=== PATIENT | female | born 1975 | race Hispanic/Latino ===

== ENCOUNTER 2024-12-05 15:25 | Inpatient (IN) | payer SELFPAY ==
[~2024-12-05] VITALS: Ht 162.6 cm; Wt 75.7 kg
[2024-12-05 15:48] VITALS: TEMP 98.4
[2024-12-05] MEDS: SODIUM CHLORIDE 0.9% 1000ML 1,000 ML IV STA (16:13)
[2024-12-05 16:17] LABS: BASOPHILS # (AUTO) 0.1 (0.0-0.1); BASOPHILS % 0.4 % (0.0-1.0); EOSINOPHILS # (AUTO) 0.5 (0.0-0.4); EOSINOPHILS % 3.3 % (0.0-6.0); HEMATOCRIT 41.4 % (34.2-44.1); LYMPHOCYTES # (AUTO) 3.8 (1.0-3.2); LYMPHOCYTES % 27.6 % (18.0-39.1); MEAN CORPUSCULAR HEMOGLOBIN 29.9 pg (28-32); MEAN CORPUSCULAR HGB CONC 33.8 g/dL (31-35); MEAN CORPUSCULAR VOLUME 88.5 fL (81-99); MONOCYTES # (AUTO) 1.2 (0.2-0.8); MONOCYTES % 8.7 % (4.4-11.3); NEUTROPHILS # (AUTO) 8.3 (2.1-6.9); NEUTROPHILS % 59.8 % (38.7-80.0); PLATELET COUNT 272 x10e3/uL (140-360); RED BLOOD COUNT 4.68 x10e6/uL (3.6-5.1); RED CELL DISTRIBUTION WIDTH 13.2 % (11.7-14.4); WHITE BLOOD COUNT 13.83 x10e3/uL (4.8-10.8)
[2024-12-05 16:30] LABS: INR 0.89; PROTHROMBIN TIME 12.6 seconds (11.9-14.5)
[2024-12-05 16:31] LABS: PARTIAL THROMBOPLASTIN TIME 28.7 seconds (23.8-35.5)
[2024-12-05] MEDS: DICYCLOMINE HCL 20 MG/2 ML VIAL IM ONE (16:31)
[2024-12-05] MEDS: ONDANSETRON HCL INJ 2MG/ML 2ML 2 MG/ML VIAL IV STA (16:33)
[2024-12-05 16:40] LABS: ALBUMIN 3.9 g/dL (3.5-5.0); ALBUMIN/GLOBULIN RATIO 1.3 (0.8-2.0); ANION GAP 16.6 mmol/L (8-16); BILIRUBIN,TOTAL 0.3 mg/dL (0.2-1.2); CALCIUM 9.8 mg/dL (8.4-10.2); CREATININE, SERUM 0.74 mg/dL (0.57-1.11); POTASSIUM 3.6 mmol/L (3.5-5.1); TOTAL PROTEIN 6.8 g/dL (6.5-8.1)
[2024-12-05] MEDS ORDERED: SODIUM CHLORIDE 0.9% 100 ML ONE (16:49)
[2024-12-05] MEDS ORDERED: IOPAMIDOL 370 MG/ML 100 ML INFUS..BTL INJ ONE (16:49)
[2024-12-05 18:08] VITALS: PULSE 61; RESP 18
[2024-12-05] MEDS ORDERED: AMOX TR-K CLV1 EAC2 PO (18:37)
[2024-12-05] MEDS ORDERED: DICYCLOMINE HCL10 MG PO (18:38)
[2024-12-05 18:40] LABS: BASOPHILS # (AUTO) 0.1 (0.0-0.1); BASOPHILS % 0.5 % (0.0-1.0); EOSINOPHILS # (AUTO) 0.5 (0.0-0.4); EOSINOPHILS % 3.2 % (0.0-6.0); HEMATOCRIT 38.9 % (34.2-44.1); HEMOGLOBIN 12.8 g/dL (12.0-16.0); LYMPHOCYTES # (AUTO) 3.6 (1.0-3.2); LYMPHOCYTES % 24.9 % (18.0-39.1); MEAN CORPUSCULAR HEMOGLOBIN 29.7 pg (28-32); MEAN CORPUSCULAR HGB CONC 32.9 g/dL (31-35); MEAN CORPUSCULAR VOLUME 90.3 fL (81-99); MONOCYTES % 6.9 % (4.4-11.3); NEUTROPHILS # (AUTO) 9.3 (2.1-6.9); NEUTROPHILS % 64.2 % (38.7-80.0); PLATELET COUNT 246 x10e3/uL (140-360); RED BLOOD COUNT 4.31 x10e6/uL (3.6-5.1); RED CELL DISTRIBUTION WIDTH 13.2 % (11.7-14.4); WHITE BLOOD COUNT 14.48 x10e3/uL (4.8-10.8)
[2024-12-05 18:46] LABS: BILIRUBIN,URINE NEGATIVE (NEGATIVE); CLARITY,URINE CLEAR (CLEAR); COLOR,URINE STRAW (YELLOW); GLUCOSE, URINE NEGATIVE (NEGATIVE); KETONES,URINE NEGATIVE (NEGATIVE); LEUKOCYTE ESTERASE ,URINE NEGATIVE (NEGATIVE); NITRITE,URINE NEGATIVE (NEGATIVE); PH,URINE 6 (5 - 7); PROTEIN,URINE DIPSTICK NEGATIVE (NEGATIVE); URINE UROBILINOGEN 0.2 mg/dL (0.2 - 1)
[2024-12-05 18:48] LABS: BACTERIA,URINE RARE /HPF
[2024-12-05 20:30] VITALS: BP 139/85; PULSE 60; RESP 18; TEMP 98.4; O2SAT 99
[2024-12-05] MEDS: SODIUM CHLORIDE 0.9% 1000ML 1,000 ML IV SCH (21:23)
[2024-12-05] MEDS: Morphine 4mg INJECTION 4 MG/ML INJ IV PRN (21:24)
[2024-12-06 01:21] VITALS: BP 139/85; PULSE 60; RESP 18; TEMP 98.4; O2SAT 99
[2024-12-06 01:24] VITALS: BP 139/85; PULSE 60; RESP 18; TEMP 98.4; O2SAT 99
[2024-12-06] MEDS ORDERED: SYNTHROID100 MCG PO (03:30)
[2024-12-06 03:31] VITALS: BP 119/70; PULSE 76; RESP 18; TEMP 97.9; O2SAT 97
[2024-12-06 05:23] LABS: HEMOGLOBIN 12.4 g/dL (12.0-16.0)
[2024-12-06 05:55] LABS: ALBUMIN 3.2 g/dL (3.5-5.0); ALBUMIN/GLOBULIN RATIO 1.2 (0.8-2.0); ANION GAP 11.8 mmol/L (8-16); BILIRUBIN,TOTAL 0.7 mg/dL (0.2-1.2); CALCIUM 8.3 mg/dL (8.4-10.2); CREATININE, SERUM 0.74 mg/dL (0.57-1.11); POTASSIUM 3.8 mmol/L (3.5-5.1); TOTAL PROTEIN 5.8 g/dL (6.5-8.1)
[2024-12-06] MEDS: SODIUM CHLORIDE 0.9% 250ML 250 ML ONE (08:32)
[2024-12-06] MEDS ORDERED: BENZONATATE 100 MG CAP PO PRN (09:15)
[2024-12-06] MEDS ORDERED: HYDRALAZINE HCL 20 MG/ML VIAL IV PRN (09:15)
[2024-12-06] MEDS ORDERED: ALBUTEROL/IPRATROPIUM 3 ML NEB NEB PRN (09:15)
[2024-12-06] MEDS ORDERED: LIDOCAINE 4% PATCH TP PRN (09:15)
[2024-12-06] MEDS ORDERED: SIMETHICONE 80 MG CHEW PO PRN (09:15)
[2024-12-06] MEDS ORDERED: POTASSIUM CHLORIDE 20 MEQ TAB CR PO PRN (09:15)
[2024-12-06] MEDS ORDERED: DEXTROSE 50% SYRINGE 50 ML IV PRN (09:15)
[2024-12-06] MEDS ORDERED: DOCUSATE SODIUM 100 MG CAP PO PRN (09:15)
[2024-12-06] MEDS ORDERED: MELATONIN 5 MG TABLET PO PRN (09:15)
[2024-12-06] MEDS ORDERED: DIPHENHYDRAMINE HCL 25 MG CAP PO PRN (09:15)
[2024-12-06 09:25] VITALS: BP 119/70; PULSE 76; RESP 18; TEMP 97.9; O2SAT 97
[2024-12-06] MEDS: DEXTROSE 5%/0.9% SOD CHL 1,000 ML IV SCH (09:41)
[2024-12-06 10:25] VITALS: PULSE 60; RESP 18; O2SAT 98
[2024-12-06 14:20] LABS: HEMATOCRIT 40.7 % (34.2-44.1); HEMOGLOBIN 13.3 g/dL (12.0-16.0)
[2024-12-06] MEDS: TRAMADOL HCL 50 MG TAB PO PRN (14:59)
[2024-12-06] MEDS ORDERED: ENOXAPARIN SOD INJ 40 MG/0.4 ML SYR SC SCH (17:00)
[2024-12-06 19:38] VITALS: PULSE 57; RESP 18; O2SAT 97
[2024-12-06] MEDS: HYDROCORTISONE 2.5% PR CRM 1 OZ TUBE PR SCH (21:39)
[2024-12-07] VITALS (7 sets, daily range): BP systolic 117–140; BP diastolic 69–92; PULSE 57–75; RESP 18; TEMP 97.9–98.4; O2SAT 97–100
[2024-12-07 05:12] LABS: BASOPHILS # (AUTO) 0.1 (0.0-0.1); BASOPHILS % 0.5 % (0.0-1.0); EOSINOPHILS # (AUTO) 0.7 (0.0-0.4); HEMATOCRIT 39.6 % (34.2-44.1); HEMOGLOBIN 12.8 g/dL (12.0-16.0); LYMPHOCYTES # (AUTO) 3.2 (1.0-3.2); MEAN CORPUSCULAR HGB CONC 32.3 g/dL (31-35); MEAN CORPUSCULAR VOLUME 92.7 fL (81-99); MONOCYTES # (AUTO) 0.8 (0.2-0.8); MONOCYTES % 8.6 % (4.4-11.3); NEUTROPHILS # (AUTO) 4.7 (2.1-6.9); NEUTROPHILS % 49.5 % (38.7-80.0); PLATELET COUNT 238 x10e3/uL (140-360); RED BLOOD COUNT 4.27 x10e6/uL (3.6-5.1); RED CELL DISTRIBUTION WIDTH 13.3 % (11.7-14.4); WHITE BLOOD COUNT 9.54 x10e3/uL (4.8-10.8)
[2024-12-07] MEDS: LEVOTHYROXINE SODIUM 100 MCG TAB PO SCH (05:14)
[2024-12-07 05:42] LABS: ANION GAP 11.8 mmol/L (8-16); CALCIUM 8.2 mg/dL (8.4-10.2); CREATININE, SERUM 0.68 mg/dL (0.57-1.11); POTASSIUM 3.8 mmol/L (3.5-5.1)
[2024-12-07 12:49] LABS: HEMATOCRIT 41.8 % (34.2-44.1); HEMOGLOBIN 13.8 g/dL (12.0-16.0)
[2024-12-07] MEDS: METRONIDAZOLE 500MG/NS 100ML 100 ML IV SCH (16:15)
[2024-12-08] VITALS (7 sets, daily range): BP systolic 110–140; BP diastolic 69–75; PULSE 57–82; RESP 18; TEMP 97.8–98.8; O2SAT 93–100
[2024-12-08 05:05] LABS: HEMATOCRIT 38.9 % (34.2-44.1); HEMOGLOBIN 13.1 g/dL (12.0-16.0)
[2024-12-08 12:23] LABS: HEMATOCRIT 36.3 % (34.2-44.1); HEMOGLOBIN 12.3 g/dL (12.0-16.0)
[2024-12-08] MEDS ORDERED: MESALAMINE 1,000 MG SUPP RC SCH (13:00)
[2024-12-08] MEDS: MESALAMINE 1,000 MG SUPP RC SCH (13:33)
[2024-12-08] MEDS: ONDANSETRON HCL INJ 2MG/ML 2ML 2 MG/ML VIAL IV PRN (21:51)
[2024-12-09] VITALS (7 sets, daily range): BP systolic 111–127; BP diastolic 68–75; PULSE 57–82; RESP 18–20; TEMP 97.5–99; O2SAT 96–100
[2024-12-09] MEDS: ACETAMINOPHEN 325 MG TAB PO PRN (04:18)
[2024-12-09 06:52] LABS: BASOPHILS # (AUTO) 0.1 (0.0-0.1); BASOPHILS % 0.6 % (0.0-1.0); EOSINOPHILS # (AUTO) 0.6 (0.0-0.4); EOSINOPHILS % 6.3 % (0.0-6.0); HEMATOCRIT 38.3 % (34.2-44.1); HEMOGLOBIN 12.7 g/dL (12.0-16.0); LYMPHOCYTES # (AUTO) 2.8 (1.0-3.2); LYMPHOCYTES % 27.9 % (18.0-39.1); MEAN CORPUSCULAR HEMOGLOBIN 30.2 pg (28-32); MEAN CORPUSCULAR HGB CONC 33.2 g/dL (31-35); MONOCYTES # (AUTO) 0.8 (0.2-0.8); MONOCYTES % 8.1 % (4.4-11.3); NEUTROPHILS # (AUTO) 5.6 (2.1-6.9); NEUTROPHILS % 56.8 % (38.7-80.0); PLATELET COUNT 231 x10e3/uL (140-360); RED BLOOD COUNT 4.21 x10e6/uL (3.6-5.1); WHITE BLOOD COUNT 9.91 x10e3/uL (4.8-10.8)
[2024-12-09 07:26] LABS: ANION GAP 13.4 mmol/L (8-16); BLOOD UREA NITROGEN < 5 mg/dL (7-26); CALCIUM 8.9 mg/dL (8.4-10.2); CARBON DIOXIDE 20 mmol/L (22-29); CHLORIDE 107 mmol/L (98-107); CREATININE, SERUM 0.65 mg/dL (0.57-1.11); EST GLOMERULAR FILTRATION RATE 107 ML/MIN (>=60); GLUCOSE 113 mg/dL (74-118); SODIUM 137 mmol/L (136-145)
[2024-12-09 07:52] LABS: BUN/CREATININE RATIO 8 (6-25); POTASSIUM 3.4 mmol/L (3.5-5.1)
[2024-12-09] MEDS ORDERED: CANASA1000 MG RC (14:51)
[2024-12-09] MEDS ORDERED: METRONIDAZOLE500 MG PO (14:51)
== END 2024-12-09 17:14 | disposition home or self-care (01) | DRG 394 ==
LOC: ER 15:57 → ERHOLD 18:56 → MED/SURG 20:00
PROVIDERS: ADMIT Internal Medicine; ATTEND Internal Medicine
DX: K62.89 Other specified diseases of anus and rectum (principal); K62.5 Hemorrhage of anus and rectum; I10 Essential (primary) hypertension; K21.9 Gastro-esophageal reflux disease without esophagitis; K57.30 Diverticulosis of large intestine without perforation or abscess without bleeding; E03.9 Hypothyroidism, unspecified; K64.9 Unspecified hemorrhoids; Z86.0100 Personal history of colon polyps, unspecified; Z90.49 Acquired absence of other specified parts of digestive tract; Z90.710 Acquired absence of both cervix and uterus; Z88.5 Allergy status to narcotic agent; Z82.49 Family history of ischemic heart disease and other diseases of the circulatory system; E66.01 Morbid (severe) obesity due to excess calories; Z68.28 Body mass index [BMI] 28.0-28.9, adult
CPT/HCPCS: 36415; 74174; 80048; 80053; 81001; 85014; 85018; 85025; 85610; 85730; 86850; 86900; 87040; 87086; 94799; 99284; J2270; J2405; J2470; J2543; J7030; J7042; J7050; Q9967